=== PATIENT | male | born 1945 | race Caucasian/White ===

== ENCOUNTER → 2024-11-02 11:00 | Outpatient (BNVA) | payer MEDICARE, OTHER, SELFPAY | PROVIDERS: Visit Provider Podiatrist Foot & Ankle Surgery | DX: E11.8 Type 2 diabetes mellitus with unspecified complications (principal); L60.3 Nail dystrophy; G62.9 Polyneuropathy, unspecified; E11.42 Type 2 diabetes mellitus with diabetic polyneuropathy | CPT/HCPCS: 99203 ==

== ENCOUNTER 2024-12-14 12:35 | Outpatient (CLI) | payer OTHER, SELFPAY ==
--- NOTE | 2024-12-14 12:40 | USCV_ITS ---
Jeet Small Age: 79 Gender: M : 1945 Exam Date: 12/14/2024 13:00 Ordering Phys: Marissa Centeno MD Technologist: [employer] Exam Location: [facility] [place] Indication: Risk Factors: Previous Vascular Surgery: Right Brachial BP: / Left Brachial BP: / Right Left Velocity (cm/s) Spectral Plaque Velocity (cm/s) Spectral Plaque Syst/Diast Broadening Syst/Diast Broadening 100.20/18.10 Prox CCA 105.90/ 20.50 89.30/ 19.90 Mid CCA 78.90 / 21.80 80.10/ 19.90 Distal CCA 77.50 / 23.30 87.40/ 14.40 Prox ICA 55.50 / 11.60 63.60/ 10.20 Mid ICA 52.60 / 13.00 56.20/ 13.20 Distal ICA 65.60 / 26.10 103.90 ECA 78.90 1.10 ICA/CCA 0.70 Antegrade Vertebral Antegrade 32.30/ 4.30 cm/s 42.00/ 4.20 cm/s Tri Subclavian Tri 52.90 80.00 CONCLUSIONS Right ICA stenosis <50%. Moderate atheromatous plaque right carotid bulb/ICA. Left ICA stenosis <50%. Moderate atheromatous plaque left carotid bulb/ICA. Intimal thickening in the common carotid arteries and internal carotid arteries bilaterally. Normal antegrade Doppler flow noted in the right vertebral artery. Normal antegrade Doppler flow noted in the left vertebral artery. Dick Marx MD (Electronically Signed) Final Date: 14 December 2024 14:43 S
== END 2024-12-14 12:36 | disposition home or self-care (01) ==
LOC: RAD 12:35
PROVIDERS: Visit Provider Family Medicine
DX: I65.23 Occlusion and stenosis of bilateral carotid arteries (principal); R93.89 Abnormal findings on diagnostic imaging of other specified body structures
CPT/HCPCS: 93880

== ENCOUNTER 2025-03-09 15:47 | Emergency (ER) | payer OTHER, MEDICARE, SELFPAY ==
[2025-03-09 15:52] VITALS: BP 144/79; PULSE 76; RESP 18; TEMP 36.6; O2SAT 95
--- NOTE | 2025-03-09 16:07 | W.ED.EYEPROB ---
Documented by User: CARINA Miner 03/09/25 20:02 HPI - Eye Problem General: Chief complaint: Eye Problems Stated complaint: Eye Issue Time Seen by Provider: 03/09/25 16:07 Source: patient Mode of arrival: EMS History of Present Illness: Patient is a 80-year-old male to the emergency department via EMS for right eye blurriness x 8 days. He does not recall any particular trauma to the eye. He denies any foreign body sensation, itching, pain, tearing, or redness. He reports central vision blurriness and improved clarity of lateral peripheral vision. He wears glasses-no contacts. No visual loss. Reports previous bilateral cataract surgery years ago. chief complaint: vision change (Blurry vision) Onset (ago): day(s) Onset description: unknown Duration: constant Location: right eye Eye Symptoms: blurry vision Place: home Mechanism: none Severity: mild Associated symptoms: Reports no associated symptoms; Denies headache(s) or neck pain Treatments Prior to Arrival: none Related Data Home Medications ?Medication ?Instructions ?Recorded ?Confirmed aspirin 81 mg tablet,delayed 81 mg PO DAILY 11/02/24 03/09/25 release (Adult Aspirin Regimen) cholecalciferol (vitamin D3) 50 50 mcg PO DAILY 11/02/24 03/09/25 mcg (2,000 unit) tablet pantoprazole 40 mg tablet,delayed 40 mg PO DAILY 11/02/24 03/09/25 release Allergies Allergy/AdvReac Type Severity Reaction Status Date / Time Unable to Assess Allergy Unverified 11/02/24 11:40 Review of Systems Eyes: Reports: change in vision and blurry vision; Denies: blind spots, photophobia, eye discomfort, eye discharge, eye redness, yellow eyes, dry eyes, increased production of tears, floaters or seeing flashes Card: Denies: irregular heart rhythm, lightheadedness, syncope or pre-syncope Musc: Denies: neck pain Neuro: Reports: numbness in extremities (chronic LE neuropathy-unchanged); Denies: headache(s), weakness in extremities, sensory changes, dizziness or Slurred speech present All/Imm: Denies: itchy eyes PFSH ED PFSH: Social History Smoking and tobacco/nicotine status: former use of tobacco/nicotine Physical Exam Const: COMMON NORMALS: no acute distress, patient oriented x3, no limitations, alert and well nourished GENERAL APPEARANCE: cooperative NUTRITIONAL APPEARANCE: obese centrally obese ORIENTATION/CONSCIOUSNESS: Yes awake, Yes oriented to person, Yes oriented to place and Yes oriented to time OTHER: NIH 0 HENMT: COMMON NORMALS: normocephalic and atraumatic HEAD & SCALP: normal to inspection, normocephalic and atraumatic FACE & SINUS: normal facial exam and face symmetric MOUTH: Normal oral and palatal mucosa present, lip normal, tongue normal and Normal salivary glands and ducts present Eye: COMMON NORMALS: EOMs intact bilaterally, conjunctivae normal and no scleral icterus GENERAL EYE: normal light reflex, no exophthalmos, no proptosis and other (no ptosis; no gaze deviation/palsy) VISUAL JANG: No peripheral vision loss and No central vision loss ALIGNMENT: Yes alignment normal PERIORBITAL: periorbital findings normal EYELID: eyelids normal CONJUNCTIVA: Yes conjunctivae normal PUPIL: Yes Pupils anisocoria left pupil size greater than right and Yes Irregular pupils (L pupil miosis when compared to R) EOM: No EOM abnormal DIRECT OPHTHALMOSCOPY: Yes normal light reflex Neck/C-Spine: COMMON NORMALS: full ROM, no JVD and No carotid bruits Resp: COMMON NORMALS: normal respiratory effort and clear to auscultation bilaterally AUSCULTATION: clear to auscultation bilaterally Cardio: COMMON NORMALS: no JVD, regular rate, regular rhythm, S1 normal heart sound present and S2 normal heart sound present RATE: regular rate RHYTHM: regular rhythm HEART SOUNDS: S1 normal heart sound present and S2 normal heart sound present Neuro: COMMON NORMALS: patient oriented x3, CN's II-XII intact bilaterally, moves all extremities, no focal motor deficits, no sensory deficits noted and gait normal SENSORIUM/ORIENTATION: Yes alert, Yes oriented to person, Yes oriented to place and Yes oriented to time CRANIAL NERVES: Yes CN normal except as noted COORDINATION/BALANCE: [id number]-cg-[id number] test normal SPEECH: speech normal GAIT: Yes Normal gait present MOTOR EXAM: 5/5 motor strength present throughout COORDINATION: [id number]-to-[id number] test normal Skin: COMMON NORMALS: no rashes or lesions noted GENERAL SKIN EXAM: no rashes or lesions noted Course Vital Signs: Vital signs: Vital Signs Temperature 97.8 F 03/09/25 15:52 Pulse Rate 84 03/09/25 19:11 Respiratory Rate 18 03/09/25 15:52 Blood Pressure 139/68 03/09/25 19:11 Pulse Oximetry 96 03/09/25 19:11 Oxygen Delivery Me thod Room Air 03/09/25 18:36 MDM - Eye Problem Medical Decision Making Patient is an 80-year-old male here for more redness involving his right eye over the past 8 days. On physical exam he does have miosis involving the right pupil. He has no neurologic deficits. NIH of 0. No facial or gaze palsy. No ptosis. Spoke to Dr. Vu with plan for CT head and CTA head/neck. These were unremarkable. Will plan on having set him up with Dr. Waldrop' office for further evaluation. Medical Records I reviewed the patient's medical records. Lab Data I reviewed the patient's lab results. 03/09/25 17:02 03/09/25 17:[address] 03/09/25 16:44 IMPRESSION: 1. No acute intracranial abnormality. 2. ASPECT score of 10. 3. Ldob-sy-mvniukvn diffuse parenchymal volume loss. 4. Mild chronic microangiopathic white matter changes. Head/Neck CTA 03/09/25 16:44 IMPRESSION: No large vessel stenosis or occlusion. IMPRESSION: No stenosis or occlusion. REFERENCES: NASCET CRITERIA. The degree of stenosis in the cervical segment of the internal carotid artery is based on NASCET criteria. Normal is no stenosis. Mild is less than 50% stenosis. Moderate is 50-69% stenosis. Severe is 70% to 99% stenosis. Total occlusion is no detectable patent lumen. Laboratory Results WBC 7.95 10^3/uL (3.29-11.43) 03/09/25 17:02 RBC 4.66 10^6/uL (3.85-5.65) 03/09/25 17:02 Hgb 15.00 g/dL (11.27-16.99) 03/09/25 17:02 Hct 41.4 % (37-53) 03/09/25 17: MCV 88.8 fl (82-101) 03/09/25 17:02 MCH 32.2 pg (27-33) 03/09/25 17:02 MCHC 36.2 g/dL (30-55) 03/09/25 17:02 RDW 13.5 % (12.1-15.1) 03/09/25 17:02 Plt Count 187 10^3/cmm (157-399) 03/09/25 17:02 MPV 9.2 fL (7.4-10.4) 03/09/25 17:02 Neut % (Auto) 60.7 % 03/09/25 17:02 Lymph % (Auto) 28.6 % 03/09/25 17:02 Jefferson % (Auto) 7.3 % 03/09/25 17:02 Eos % (Auto) 2.5 % 03/09/25 17:02 Baso % (Auto) 0.5 % 03/09/25 17:02 Neut # (Auto) 4.83 10^3/uL (1.8-7.7) 03/09/25 17:02 Lymph # (Auto) 2.3 10^3/uL (0.8-4.8) 03/09/25 17:02 Jefferson # (Auto) 0.6 10^3/uL (0.2-0.9) 03/09/25 17:02 Eos # (Auto) 0.2 10^3/uL (0.0-0.8) 03/09/25 17:02 Baso # (Auto) 0.0 10^3/uL (0.0-0.1) 03/09/25 17:02 Nucleated RBC % (auto) 0 % 03/09/25 17:02 Nucleated RBCs # 0.0 /100WBC 03/09/25 17:02 Sodium 141 mmol/L (136-145) 03/09/25 17:02 Potassium 4.0 mmol/L (3.5-5.1) 03/09/25 17:02 Chloride 103 mmol/L (98-107) 03/09/25 17:02 Carbon Dioxide 24 mmol/L (22-29) 03/09/25 17:02 Anion Gap 18.0 (5-19) 03/09/25 17:02 BUN 12 mg/dL (8-23) 03/09/25 17:02 Creatinine 0.9 mg/dL (0.7-1.2) 03/09/25 17:02 GFR Calculation Not Reportable 03/09/25 17:02 Glucose 116 mg/dL (65-115) H 03/09/25 17:02 Calculated Osmolality 293 mOsm/kg (285-295) 03/09/25 17:02 Calcium 9.3 mg/dL (8.5-10.5) 03/09/25 17:02 Total Bilirubin 0.7 mg/dL (0.15-1.2) 03/09/25 17:02 AST 25 U/L (0-40) 03/09/25 17:02 ALT 22 U/L (0-41) 03/09/25 17:02 Alkaline Phosphatase 109 U/L (40-130) 03/09/25 17:02 Total Protein 6.6 g/dL (6.6-8.7) 03/09/25 17:02 Albumin 4.4 g/dL (3.5-5.2) 03/09/25 17:02 Globulin 2.2 g/dL (1.3-4.6) 03/09/25 17:02 All radiology interpretation(s) finalized by discharge Discharge Plan Discharge Patient Disposition: Home Clinical Impression: Blurred vision, right eye, Anisocoria Condition: Stable Prescriptions: No Action aspirin [Adult Aspirin Regimen] 81 mg tablet,delayed release (DR/EC) 81 mg PO DAILY cholecalciferol (vitamin D3) 50 mcg (2,000 unit) tablet 50 mcg PO DAILY pantoprazole 40 mg tablet,delayed release (DR/EC) 40 mg PO DAILY Discharge Orders: Discharge ED (Routine); Ordered 03/09/25 Ordered By: Ada Moore Referrals: [facility] [Outside] Activity Restrictions/Additional Instructions: As we discussed, case management should contact you this week to help set you up with a follow-up appointment with Dr. Waldrop's eye office for further evaluation of your blurriness to your right eye. Print Language: Surinamese Coding Level of Care Code ED Grounding Engineer for Yariel Fwd Documented by User: Rosendo Vu, 03/10/25 06:41 HPI - Eye Problem General: Chief complaint: Eye Problems Stated complaint: Eye Issue Time Seen by Provider: 03/09/25 16:07 Related Data Home Medications ?Medication ?Instructions ?Recorded ?Confirmed aspirin 81 mg tablet,delayed 81 mg PO DAILY 11/02/24 03/09/25 release (Adult Aspirin Regimen) cholecalciferol (vitamin D3) 50 50 mcg PO DAILY 11/02/24 03/09/25 mcg (2,000 unit) tablet pantoprazole 40 mg tablet,delayed 40 mg PO DAILY 11/02/24 03/09/25 release Allergies Allergy/AdvReac Type Severity Reaction Status Date / Time Unable to Assess Allergy Unverified 11/02/24 11:40 [facility] ED PFSH: Social History Smoking and tobacco/nicotine status: former use of tobacco/nicotine Course Vital Signs: Vital signs: Vital Signs Temperature 97.8 F 03/09/25 15:52 Pulse Rate 84 03/09/25 19:11 Respiratory Rate 18 03/09/25 15:52 Blood Pressure 139/68 03/09/25 19:11 Pulse Oximetry 96 03/09/25 19:11 Oxygen Delivery Me thod Room Air 03/09/25 18:36 MDM - Eye Problem Medical Decision Making Patient is an 80-year-old male here for more redness involving his right eye over the past 8 days. On physical exam he does have miosis involving the right pupil. He has no neurologic deficits. NIH of 0. No facial or gaze palsy. No ptosis. Spoke to Dr. Vu with plan for CT head and CTA head/neck. These were unremarkable. Will plan on having set him up with Dr. Waldrop' office for further evaluation. Chart reviewed and patient discussed with midlevel. Agree with assessment and plan. Lab Data 03/09/25 17:02 03/09/25 17:[address] 03/09/25 16:44 IMPRESSION: 1. No acute intracranial abnormality. 2. ASPECT score of 10. 3. Gyna-bf-oiyuxhqa diffuse parenchymal volume loss. 4. Mild chronic microangiopathic white matter changes. Head/Neck CTA 03/09/25 16:44 IMPRESSION: No large vessel stenosis or occlusion. IMPRESSION: No stenosis or occlusion. REFERENCES: NASCET CRITERIA. The degree of stenosis in the cervical segment of the internal carotid artery is based on NASCET criteria. Normal is no stenosis. Mild is less than 50% stenosis. Moderate is 50-69% stenosis. Severe is 70% to 99% stenosis. Total occlusion is no detectable patent lumen. Laboratory Results WBC 7.95 10^3/uL (3.29-11.43) 03/09/25 17:02 RBC 4.66 10^6/uL (3.85-5.65) 03/09/25 17:02 Hgb 15.00 g/dL (11.27-16.99) 03/09/25 17:02 Hct 41.4 % (37-53) 03/09/25 17:02 MCV 88.8 fl (82-101) 03/09/25 17:02 MCH 32.2 pg (27-33) 03/09/25 17:02 MCHC 36.2 g/dL (30-55) 03/09/25 17:02 RDW 13.5 % (12.1-15.1) 03/09/25 17:02 Plt Count 187 10^3/cmm (157-399) 03/09/25 17:02 MPV 9.2 fL (7.4-10.4) 03/09/25 17:02 Neut % (Auto) 60.7 % 03/09/25 17:02 Lymph % (Auto) 28.6 % 03/09/25 17:02 Jefferson % (Auto) 7.3 % 03/09/25 17:02 Eos % (Auto) 2.5 % 03/09/25 17:02 Baso % (Auto) 0.5 % 03/09/25 17:02 Neut # (Auto) 4.83 10^3/uL (1.8-7.7) 03/09/25 17:02 Lymph # (Auto) 2.3 10^3/uL (0.8-4.8) 03/09/25 17:02 Jefferson # (Auto) 0.6 10^3/uL (0.2-0.9) 03/09/25 17:02 Eos # (Auto) 0.2 10^3/uL (0.0-0.8) 03/09/25 17:02 Baso # (Auto) 0.0 10^3/uL (0.0-0.1) 03/09/25 17:02 Nucleated RBC % (auto) 0 % 03/09/25 17:02 Nucleated RBCs # 0.0 /100WBC 03/09/25 17:02 Sodium 141 mmol/L (136-145) 03/09/25 17:02 Potassium 4.0 mmol/L (3.5-5.1) 03/09/25 17:02 Chloride 103 mmol/L (98-107) 03/09/25 17:02 Carbon Dioxide 24 mmol/L (22-29) 03/09/25 17:02 Anion Gap 18.0 (5-19) 03/09/25 17:02 BUN 12 mg/dL (8-23) 03/09/25 17:02 Creatinine 0.9 mg/dL (0.7-1.2) 03/09/25 17:02 GFR Calculation Not Reportable 03/09/25 17:02 Glucose 116 mg/dL (65-115) H 03/09/25 17:02 Calculated Osmolality 293 mOsm/kg (285-295) 03/09/25 17:02 Calcium 9.3 mg/dL (8.5-10.5) 03/09/25 17:02 Total Bilirubin 0.7 mg/dL (0.15-1.2) 03/09/25 17:02 AST 25 U/L (0-40) 03/09/25 17:02 ALT 22 U/L (0-41) 03/09/25 17:02 Alkaline Phosphatase 109 U/L (40-130) 03/09/25 17:02 Total Protein 6.6 g/dL (6.6-8.7) 03/09/25 17:02 Albumin 4.4 g/dL (3.5-5.2) 03/09/25 17:02 Globulin 2.2 g/dL (1.3-4.6) 03/09/25 17:02 Discharge Plan Discharge Patient Disposition: Home Clinical Impression: Blurred vision, right eye, Anisocoria Condition: Stable Prescriptions: No Action aspirin [Adult Aspirin Regimen] 81 mg tablet,delayed release (DR/EC) 81 mg PO DAILY cholecalciferol (vitamin D3) 50 mcg (2,000 unit) tablet 50 mcg PO DAILY pantoprazole 40 mg tablet,delayed release (DR/EC) 40 mg PO DAILY Discharge Orders: Discharge ED (Routine); Ordered 03/09/25 Ordered By: Ada Moore Referrals: [facility] [Outside] Activity Restrictions/Additional Instructions: As we discussed, case management should contact you this week to help set you up with a follow-up appointment with Dr. Waldrop's eye office for further evaluation of your blurriness to your right eye. Print Language: Surinamese Coding Level of Care Code ED Grounding Engineer for Yariel Irby
[2025-03-09 16:11] VITALS: O2SAT 95
--- NOTE | 2025-03-09 16:44 | CTR_ITS ---
PROCEDURE INFORMATION: Exam: CT Head Without Contrast Exam date and time: 03/09/2025 5:57 PM Age: 80 years old Clinical indication: Visual disturbance; Additional info: Blurry R eye, miosis R eye TECHNIQUE: Imaging protocol: Computed tomography of the head without contrast. Radiation optimization: All CT scans at this facility use at least one of these dose optimization techniques: automated exposure control; mA and/or kV adjustment per patient size (includes targeted exams where dose is matched to clinical indication); or iterative reconstruction. COMPARISON: CT angio headneck* [id number] 03/09/2025 5:57 PM RADIATION DOSE METRICS: Total DLP (mGy-cm): 1177.92 FINDINGS: Brain: Rosales-white matter differentiation preserved. No hemorrhage. No mass effect. Ybsp-vg-eqsoiabd diffuse parenchymal volume loss. Mild periventricular white matter hypoattenuation, most consistent with chronic microangiopathic white matter changes. Cerebral ventricles: No ventriculomegaly. Paranasal sinuses: Visualized sinuses are unremarkable. No fluid levels. Mastoid air cells: Visualized mastoid air cells are well aerated. Bones: Unremarkable. No acute fracture. Soft tissues: Unremarkable. CT/CT head wo con* [id number] IMPRESSION: 1. No acute intracranial abnormality. 2. ASPECT score of 10. 3. Yayz-se-buftcfyr diffuse parenchymal volume loss. 4. Mild chronic microangiopathic white matter changes.
--- NOTE | 2025-03-09 16:44 | CTR_ITS ---
PROCEDURE INFORMATION: Exam: CTA Head With Contrast, Arteriography Exam date and time: 03/09/2025 5:57 PM Age: 80 years old Clinical indication: Visual disturbance; Other visual defect; Prior surgery; Surgery date: 6+ months; Surgery type: Cataract; Additional info: Blurry R eye, miosis R eye TECHNIQUE: Imaging protocol: Computed tomographic angiography of the head with contrast. Exam focused on the arteries. 3D rendering (Not supervised by radiologist): MIP and/or 3D reconstructed images were created by the technologist. Radiation optimization: All CT scans at this facility use at least one of these dose optimization techniques: automated exposure control; mA and/or kV adjustment per patient size (includes targeted exams where dose is matched to clinical indication); or iterative reconstruction. Contrast material: OMNI 350; Contrast volume: 100 ml; Contrast route: INTRAVENOUS (IV); COMPARISON: CT head wo con* [id number] 03/09/2025 5:57 PM RADIATION DOSE METRICS: Total DLP (mGy-cm): 495.5 FINDINGS: ANTERIOR CIRCULATION: Right internal carotid artery: Intracranial segment is patent with no significant stenosis. No aneurysm. Right middle cerebral artery: No occlusion or significant stenosis. No aneurysm. Right anterior cerebral artery: No occlusion or significant stenosis. No aneurysm. Left internal carotid artery: Intracranial segment is patent with no significant stenosis. No aneurysm. Left middle cerebral artery: No occlusion or significant stenosis. No aneurysm. Left anterior cerebral artery: No occlusion or significant stenosis. No aneurysm. POSTERIOR CIRCULATION: Right vertebral artery: No occlusion or significant stenosis. No aneurysm. Left vertebral artery: No occlusion or significant stenosis. No aneurysm. Basilar artery: No occlusion or significant stenosis. No aneurysm. Right posterior cerebral artery: No occlusion or significant stenosis. No aneurysm. Left posterior cerebral artery: No occlusion or significant stenosis. No aneurysm. Brain: No definite mass, mass effect, or midline shift. Cerebral ventricles: No ventriculomegaly. Bones/joints: Unremarkable. No acute fracture. Soft tissues: Unremarkable. PROCEDURE INFORMATION: Exam: CTA Neck With Contrast Exam date and time: 03/09/2025 5:57 PM Age: 80 years old Clinical indication: Visual disturbance; Other visual defect; Prior surgery; Surgery date: 6+ months; Surgery type: Cataract; Additional info: Blurry R eye, miosis R eye TECHNIQUE: Imaging protocol: Computed tomographic angiography of the neck with contrast. Exam focused on the cervical segments of the vasculature. 3D rendering (Not supervised by radiologist): MIP and/or 3D reconstructed images were created by the technologist. Radiation optimization: All CT scans at this facility use at least one of these dose optimization techniques: automated exposure control; mA and/or kV adjustment per patient size (includes targeted exams where dose is matched to clinical indication); or iterative reconstruction. Contrast material: OMNI 350; Contrast volume: 100 ml; Contrast route: INTRAVENOUS (IV); COMPARISON: CT head wo con* [id number] 03/09/2025 5:57 PM RADIATION DOSE METRICS: Total DLP (mGy-cm): 495.5 FINDINGS: Right common carotid artery: No stenosis. No dissection or occlusion. Right internal carotid artery: No stenosis of the extracranial segment. No dissection or occlusion. Right external carotid artery: No occlusion or stenosis of the origin. Left common carotid artery: No stenosis. No dissection or occlusion. Left internal carotid artery: No stenosis of the extracranial segment. No dissection or occlusion. Left external carotid artery: No occlusion or stenosis of the origin. Right vertebral artery: No stenosis. No dissection or occlusion. Left vertebral artery: No stenosis. No dissection or occlusion. Soft tissues: Normal. No significant soft tissue swelling. Bones/joints: No acute fracture. CT/CT angio headneck* [id number] IMPRESSION: No large vessel stenosis or occlusion. IMPRESSION: No stenosis or occlusion. REFERENCES: NASCET CRITERIA. The degree of stenosis in the cervical segment of the internal carotid artery is based on NASCET criteria. Normal is no stenosis. Mild is less than 50% stenosis. Moderate is 50-69% stenosis. Severe is 70% to 99% stenosis. Total occlusion is no detectable patent lumen.
--- NOTE | 2025-03-09 17:07 | PC.NURSE ---
while pt was getting up from bed pt began jerking legs stating I'm going to fall! This nurse asked pt if he used any walking devices at home, pt states sometimes a walker but I won't need it to walk to the bathroom. Pt then stated I dont have to put on my shoes, pt got up and went to walk to bathroom and was throwing arms around and seemed very unbalanced. This nurse asked if pt needed any help, pt stated no. Pt very short with staff. Pt then walked to bathroom.
--- NOTE | 2025-03-09 17:10 | PC.NURSE ---
pt stating That nurse come in here and states I was diagnosed with neuropathy, when did this happen? No one has told me anything about having that or anything. Pt demanding to know when and what doctor. this nurse explained that she could only see Neuropathy noted from podiatry in Nov 2024. Pt writing everything down on a personal phone.
[2025-03-09 17:11] LABS: Basophils % 0.5 %; Eosinophils # 0.2 10^3/uL (0.0-0.8); Eosinophils % 2.5 %; Hematocrit 41.4 % (37-53); Lymphocytes # 2.3 10^3/uL (0.8-4.8); Lymphocytes % 28.6 %; Mean Corpuscular HGB Conc 36.2 g/dL (30-55); Mean Corpuscular Hemoglobin 32.2 pg (27-33); Mean Corpuscular Volume 88.8 fl (82-101); Mean Platelet Volume 9.2 fL (7.4-10.4); Monocytes # 0.6 10^3/uL (0.2-0.9); Monocytes % 7.3 %; Neutrophils # 4.83 10^3/uL (1.8-7.7); Neutrophils % 60.7 %; Nucleated Red Blood Cells % 0 %; Platelet Count 187 10^3/cmm (157-399); Red Blood Count 4.66 10^6/uL (3.85-5.65); Red Cell Distribution Width 13.5 % (12.1-15.1); White Blood Count 7.95 10^3/uL (3.29-11.43)
--- NOTE | 2025-03-09 17:12 | PC.NURSE ---
Pt states that he lives alone at home and takes care of self. Pt appears unkempt.
--- NOTE | 2025-03-09 17:20 | PC.NURSE ---
pt has ripped off vs equipment, will readdress at a later time.
--- NOTE | 2025-03-09 17:24 | PC.NURSE ---
this nurse gave pt his call light, pt pushed call light to tell this nurse that he did not want his call light on the bed and to throw it away then tossed call light over side of bed.
--- NOTE | 2025-03-09 17:31 | PC.NURSE ---
pt has been out in hallway multiple times, pt was stating he wants to go home, this nurse let provider know, then when this nurse went to ask pt if he had a ride, pt states he'll stay since his ride is in at a birthday green party. Pt continues to walk out to hallway instead of using call light.
[2025-03-09 17:49] LABS: Alanine Aminotransferase 22 U/L (0-41); Albumin Level 4.4 g/dL (3.5-5.2); Alkaline Phosphatase 109 U/L (40-130); Aspartate Amino Transferase 25 U/L (0-40); Blood Urea Nitrogen 12 mg/dL (8-23); Calcium 9.3 mg/dL (8.5-10.5); Carbon Dioxide 24 mmol/L (22-29); Chloride 103 mmol/L (98-107); Globulin 2.2 g/dL (1.3-4.6); Glucose 116 mg/dL (65-115); Osmolality Calculated 293 mOsm/kg (285-295); Sodium 141 mmol/L (136-145); Total Bilirubin 0.7 mg/dL (0.15-1.2); Total Protein 6.6 g/dL (6.6-8.7)
--- NOTE | 2025-03-09 18:35 | PC.NURSE ---
pt states not having ate all day, requesting food, Moore notified and okayed, pt given sandwich, pudding, and water.
[2025-03-09 18:36] VITALS: PULSE 86; O2SAT 96
[2025-03-09 19:11] VITALS: BP 139/68; PULSE 84; O2SAT 96
--- NOTE | 2025-03-10 07:18 | DCPLANNER ---
Addendum entered by Adriana Guidry 03/11/25 09:01: [facility] Original Note: faxed referral packet to [facility]mology ([facility])
== END 2025-03-09 19:12 | disposition home or self-care (01) ==
PROVIDERS: Emergency Provider Physician Assistant; PCP Family Medicine
DX: H53.8 Other visual disturbances (principal); H57.02 Anisocoria; Z79.82 Long term (current) use of aspirin; Z87.891 Personal history of nicotine dependence
CPT/HCPCS: 70450; 70496; 70498; 80053; 85025; 99284